=== PATIENT | female | born 1935 | race Two or more races ===

== ENCOUNTER → 2018-12-29 | Outpatient (CLI) | payer MEDICAID | END | disposition home or self-care (01) | LOC: Rad HDHVI 09:55 | PROVIDERS: ATTEND Internal Medicine | DX: I08.2 Rheumatic disorders of both aortic and tricuspid valves (principal); I10 Essential (primary) hypertension | CPT/HCPCS: 93306 ==

== ENCOUNTER → 2019-01-07 | Outpatient (CLI) | payer MEDICAID ==
[~2019-01-07] VITALS: Ht 162.6 cm; Wt 81.6 kg
[~2019-01-07] MED LIST: ADENOSINE 69 MG in GIVE UN-DILUTED 0 ML IV ONE; ADENOSINE 90 MG/30 ML INJ IV ONE
== END | disposition home or self-care (01) ==
LOC: Rad HDHVI 09:18
PROVIDERS: ATTEND Internal Medicine
DX: I10 Essential (primary) hypertension (principal); E78.5 Hyperlipidemia, unspecified; M06.9 Rheumatoid arthritis, unspecified; R07.89 Other chest pain; E13.49 Other specified diabetes mellitus with other diabetic neurological complication; E13.69 Other specified diabetes mellitus with other specified complication; G47.30 Sleep apnea, unspecified
CPT/HCPCS: 78452; 93005; 96374; 96375; A9500; J0153

== ENCOUNTER 2020-09-15 07:19 | Day surgery (SDC) | payer OTHER, MEDICAID ==
[~2020-09-15] VITALS: Ht 162.6 cm; Wt 83.5 kg
[~2020-09-15 07:19] MED LIST changes: -ADENOSINE 69 MG in GIVE UN-DILUTED 0 ML IV ONE; -ADENOSINE 90 MG/30 ML INJ IV ONE; +ASPI-498 PO; +CHOL10009 PO; +GABA300C10 PO; +GLIP5TAB12 PO; +LOSA-39 PO; +METO25TA93 PO; +NITR0.4S29 SL; +OMEP-260 PO; +PRAV20TA3 PO
[2020-09-15] MEDS ORDERED: IODIXANOL 320MG/ML 100ML BTL IV ONE (07:41)
[2020-09-15] MEDS ORDERED: LIDOCAINE 2%HCL (LOCAL ANESTH.) INJ 20ML MDV ONE (07:41)
[2020-09-15] MEDS ORDERED: ANGIOMAX 250 MG VIAL IV ONE (07:54)
[2020-09-15] MEDS ORDERED: fentaNYL CITRATE 100 MCG/2 ML VL ONE (07:54)
[2020-09-15] MEDS ORDERED: VERAPAMIL 2.5MG/ML INJ 2ML VIAL IV ONE (07:54)
[2020-09-15] MEDS ORDERED: SODIUM CHL 0.9% 0 ML ONE (07:55)
[2020-09-15] MEDS ORDERED: MIDAZOLAM HCL 1MG/1ML-2 ML VIAL ONE (07:55)
[2020-09-15] MEDS ORDERED: HEPARIN 1,000 UNITS/ml 1ML VIAL ONE (08:31)
[2020-09-15] MEDS ORDERED: HEPARIN SODIUM (PORCINE) 5000 UNITS/ML 1ML VIAL ONE (08:31)
[2020-09-15] MEDS ORDERED: ONDANSETRON HCL 4 MG/2 ML VIAL IV PRN (09:15)
[2020-09-15] MEDS ORDERED: ACETAMINOPHEN 500 MG TAB PO PRN (09:15)
[2020-09-15] MEDS ORDERED: hydrALAZINE HCL 20 MG/ML VL ONE (10:59)
[2020-09-15] MEDS ORDERED: hydrALAZINE HCL 20 MG/ML VL IV ONE (11:00)
== END 2020-09-15 11:40 | disposition home or self-care (01) ==
LOC: CATH 07:19
PROVIDERS: ATTEND Internal Medicine Cardiovascular Disease
DX: I25.10 Atherosclerotic heart disease of native coronary artery without angina pectoris (principal); I10 Essential (primary) hypertension; E78.00 Pure hypercholesterolemia, unspecified; E11.21 Type 2 diabetes mellitus with diabetic nephropathy; K21.9 Gastro-esophageal reflux disease without esophagitis; E78.5 Hyperlipidemia, unspecified; Z79.82 Long term (current) use of aspirin; Z79.899 Other long term (current) drug therapy; Z98.890 Other specified postprocedural states; Z68.31 Body mass index [BMI] 31.0-31.9, adult; Z20.822 Contact with and (suspected) exposure to COVID-19
CPT/HCPCS: 93458; C1887; J0360; J1644; J2250; J3010; J7030; Q9967; U0003; 99152